=== PATIENT | female | born 1945 | race Caucasian/White ===

== ENCOUNTER 2017-04-27 09:22 | Outpatient (CLI) | payer OTHER ==
[2017-04-27 10:17] LABS: eGFR (African) > 60; eGFR (Non-African) > 60
== END 2017-04-27 09:30 ==
LOC: LAB 09:22
PROVIDERS: ATTEND Family Medicine
DX: E11.9 Type 2 diabetes mellitus without complications (principal); L65.9 Nonscarring hair loss, unspecified
CPT/HCPCS: 36415; 80053; 80061; 83036; 84443

== ENCOUNTER 2017-08-30 08:44 | Outpatient (CLI) | payer OTHER ==
[2017-08-30 09:29] LABS: eGFR (African) > 60; eGFR (Non-African) > 60
== END 2017-08-30 08:45 ==
LOC: LAB 08:44
PROVIDERS: ATTEND Family Medicine
DX: E11.9 Type 2 diabetes mellitus without complications (principal); E78.2 Mixed hyperlipidemia
CPT/HCPCS: 36415; 80053; 83036

== ENCOUNTER 2017-12-01 08:59 | Outpatient (CLI) | payer OTHER | END 2017-12-01 09:00 | LOC: LAB 08:59 | PROVIDERS: ATTEND Family Medicine | DX: E11.9 Type 2 diabetes mellitus without complications (principal) | CPT/HCPCS: 36415; 83036 ==

== ENCOUNTER 2018-02-28 09:22 | Outpatient (CLI) | payer OTHER ==
[2018-02-28 10:42] LABS: eGFR (African) > 60; eGFR (Non-African) > 60
== END 2018-02-28 09:23 ==
LOC: LAB 09:22
PROVIDERS: ATTEND Family Medicine
DX: E11.9 Type 2 diabetes mellitus without complications (principal)
CPT/HCPCS: 36415; 80048; 83036

== ENCOUNTER 2018-08-29 09:00 | Outpatient (CLI) | payer OTHER | END 2018-08-29 09:10 | LOC: LAB 09:00 | PROVIDERS: ATTEND Family Medicine | DX: E11.9 Type 2 diabetes mellitus without complications (principal) | CPT/HCPCS: 36415; 83036 ==

== ENCOUNTER 2019-05-15 08:44 | Outpatient (CLI) | payer OTHER ==
[2019-05-15 09:17] LABS: A1C 6.8 % (<5.7)
[2019-05-15 10:18] LABS: eGFR (Non-African) > 60
[2019-05-15 10:19] LABS: HDL 74 mg/dL (>40)
== END 2019-05-15 08:49 ==
LOC: LAB 08:44
PROVIDERS: ATTEND Family Medicine
DX: E11.9 Type 2 diabetes mellitus without complications (principal); E03.9 Hypothyroidism, unspecified
CPT/HCPCS: 36415; 80053; 80061; 82043; 83036; 84443